=== PATIENT | female | born 1995 | race African-American/Black ===

== ENCOUNTER → 2017-08-05 | Outpatient (REF) | payer OTHER ==
[~2017-08-05] MED LIST: HYDR-385 PO
[2017-08-05 14:07] LABS: PLATELET COUNT, AUTOMATED 268 K/uL (150-450)
== END ==
LOC: ZZSENDIN 12:58
PROVIDERS: ATTEND Student in an Organized Health Care Education/Training Program
DX: Z36.89 Encounter for other specified antenatal screening (principal); Z3A.01 Less than 8 weeks gestation of pregnancy
CPT/HCPCS: 81001; 85025; 86592; 86762; 86850; 86900; 86901; 87088; 87340

== ENCOUNTER 2017-10-30 12:41 | Emergency (ER) | payer OTHER, MEDICAID ==
--- NOTE | 2017-10-30 12:46 | ER Report ---
History and Physical Time Seen By MD: 12:46 HPI/ROS 21-year-old female at 17 weeks gestation presents to the emergency department feeling some cramping pain in her bilateral pelvic region. It started this morning. She's had no trauma. No urinary symptoms, and no fever chills. No vaginal bleeding, and no vaginal discharge. She has not had any complications thus far throughout the . She has been compliant with her vitamins. Remainder of the 14 system rev: Yes Allergies: Coded Allergies: No Known Drug Allergies (Unverified , 10/30/17) Home Meds Reported Medications Vits W-Ca,Fe,Fa(<1MG) ( VITAMINS) 1 Each Tablet, 1 EACH PO DAILY, TAB 10/30/17 Discontinued Scripts Hydrocodone Bit/Acetaminophen (HYDROCODON-ACETAMINOPHEN 5-325) 1 Each Tablet, 1- 2 EACH PO Q6H, #20 TAB Prov:TAD BARROSO 02/15/17 Reviewed Nurses Notes: Yes Old Medical Records Reviewed: Yes Hx Smoking: No Exposure to Second Hand Smoke?: No Hx Substance Use Disorder: Yes (pot) Hx Alcohol Use: No Constitutional Vital Sign - Last 24 Hours 10/30/17 12:46 Temp 97.9 Pulse 75 Resp 14 B/P (MAP) 128/67 Pulse Ox 96 O2 Delivery Room Air Physical Exam General Appearance: The patient is alert, has no immediate need for airway protection and no current signs of toxicity. Eyes: Pupils equal and round no injection. Respiratory: Chest is non tender, lungs are clear to auscultation. Cardiac: regular rate and rhythm Gastrointestinal: Abdomen is gravid and non tender, no masses, bowel sounds normal. Extremities have full range of motion and are non tender. Skin: No rashes or lesions. DIFFERENTIAL DIAGNOSIS: After history and physical exam differential diagnosis was considered for miscarriage, infection, PPROM, round ligament pain, UTI Medical Decision Making Data Points Laboratory Hematology Test 10/30/17 12:46 Urine Color Yellow Urine Clarity Slightly-cloudy Urine pH 7.0 pH (4.8-9.5) Urine Specific [place] 1.020 Urine Protein Negative mg/dL (NEGATIVE) Urine Glucose (UA) Negative mg/dL (NEGATIVE) Urine Ketones Negative mg/dL (NEGATIVE) Urine Blood Negative (NEGATIVE) Urine Nitrite Negative (NEGATIVE) Urine Bilirubin Negative (NEGATIVE) Urine Urobilinogen Negative mg/dL (0.2-1.9) Urine Leukocyte Esterase Negative (NEGATIVE) Urine RBC <1 /HPF (0-2/HPF) Urine WBC 1 /HPF (0-5/HPF) Urine Squamous Epithelial Cells Many /LPF (</=FEW) Urine Bacteria Negative /HPF (NONE-FEW) Urine Mucus Few /HPF (NONE-FEW) Chemistry Test 10/30/17 12:46 Urine Color Yellow Urine Clarity Slightly-cloudy Urine pH 7.0 pH (4.8-9.5) Urine Specific [place] 1.020 Urine Protein Negative mg/dL (NEGATIVE) Urine Glucose (UA) Negative mg/dL (NEGATIVE) Urine Ketones Negative mg/dL (NEGATIVE) Urine Blood Negative (NEGATIVE) Urine Nitrite Negative (NEGATIVE) Urine Bilirubin Negative (NEGATIVE) Urine Urobilinogen Negative mg/dL (0.2-1.9) Urine Leukocyte Esterase Negative (NEGATIVE) Urine RBC <1 /HPF (0-2/HPF) Urine WBC 1 /HPF (0-5/HPF) Urine Squamous Epithelial Cells Many /LPF (</=FEW) Urine Bacteria Negative /HPF (NONE-FEW) Urine Mucus Few /HPF (NONE-FEW) Urinalysis Test 10/30/17 12:46 Urine Color Yellow Urine Clarity Slightly-cloudy Urine pH 7.0 pH (4.8-9.5) Urine Specific [place] 1.020 Urine Protein Negative mg/dL (NEGATIVE) Urine Glucose (UA) Negative mg/dL (NEGATIVE) Urine Ketones Negative mg/dL (NEGATIVE) Urine Blood Negative (NEGATIVE) Urine Nitrite Negative (NEGATIVE) Urine Bilirubin Negative (NEGATIVE) Urine Urobilinogen Negative mg/dL (0.2-1.9) Urine Leukocyte Esterase Negative (NEGATIVE) Urine RBC <1 /HPF (0-2/HPF) Urine WBC 1 /HPF (0-5/HPF) Urine Squamous Epithelial Cells Many /LPF (</=FEW) Urine Bacteria Negative /HPF (NONE-FEW) Urine Mucus Few /HPF (NONE-FEW) ED Course/Re-evaluation ED Course 21-year-old at 17 weeks gestation with bilateral lower pelvic cramping. No vaginal bleeding, discharge, or loss of fluid. Pelvic exam was deferred due to none of the above. UA WNL. A bedside US done by myself shows a very active fetus with a HR in the 150s. I think the diagnosis in this patient is round ligament pain. I discussed this with the patient at length. She will follow-up with her OB doctor sometime this week. Decision to Disposition Date: Oct 30, 2017 Decision to Disposition Time: 13:32 Depart Departure Latest Vital Signs Vital Signs Date Time Temp Pulse Resp B/P (MAP) Pulse Ox O2 Delivery O2 Flow Rate FiO2 10/30/17 12:46 97.9 75 14 128/67 96 Room Air Impression: Primary Impression: Round ligament pain Condition: Improved Disposition: HOME OR SELF-CARE Patient Instructions: Round Ligament Pain (GEN) EDINSON MEDINA MD Oct 30, 2017 12:46
[2017-10-30] MEDS ORDERED: PREN-127 PO (12:52)
[2017-10-30 13:30] VITALS: BP 110/65
== END 2017-10-30 13:39 | disposition home or self-care (01) ==
LOC: ER 12:51
DX: O26.892 Other specified pregnancy related conditions, second trimester (principal); Z3A.17 17 weeks gestation of pregnancy
CPT/HCPCS: 81001; 99284

== ENCOUNTER 2017-11-24 09:42 | Emergency (ER) | payer OTHER, MEDICAID ==
[~2017-11-24 09:42] MED LIST changes: +PREN-127 PO
--- NOTE | 2017-11-24 09:45 | ER Report ---
History and Physical Time Seen By MD: 09:45 HPI/ROS 22-year-old female at 21 weeks gestation presents to the emergency department with a mechanical fall last night. This morning noticed some scant vaginal bleeding and some mild cramping abdominal pain. Still feeling baby move. Other pain or injuries other than the mild cramping in her abdomen. Allergies: Coded Allergies: No Known Drug Allergies (Unverified , 11/24/17) Home Meds Reported Medications Vits W-Ca,Fe,Fa(<1MG) ( VITAMINS) 1 Each Tablet, 1 EACH PO DAILY, TAB 10/30/17 Reviewed Nurses Notes: Yes Old Medical Records Reviewed: Yes Hx Smoking: No Exposure to Second Hand Smoke?: No Hx Substance Use Disorder: Yes (pot) Hx Alcohol Use: No Constitutional Vital Sign - Last 24 Hours 11/24/17 09:47 Temp 98.1 Pulse 90 Resp 12 B/P (MAP) 105/77 Pulse Ox 96 O2 Delivery Room Air Physical Exam General Appearance: The patient is alert, has no immediate need for airway protection and no current signs of toxicity. Eyes: Pupils equal and round no injection. Respiratory: Chest is non tender, lungs are clear to auscultation. Cardiac: regular rate and rhythm Gastrointestinal: Abdomen is soft and non tender, gravid, no masses, bowel sounds normal. Neck: Neck is supple and non tender. Extremities have full range of motion and are non tender. Skin: No rashes or lesions. DIFFERENTIAL DIAGNOSIS: After history and physical exam differential diagnosis was considered for trauma in , abdominal trauma, other trauma, domestic violence Medical Decision Making ED Course/Re-evaluation ED Course Bedside abdominal ultrasound shows good movement with a heart rate of 147. Extremity or bony tenderness to palpation. No current vaginal bleeding. Mild subjective abdominal pain without tenderness to palpation. She is cleared from a trauma standpoint at this point, and will be discharged to labor and delivery where she will have monitoring. Decision to Disposition Date: Nov 24, 2017 Decision to Disposition Time: 10:12 Depart Departure Latest Vital Signs Vital Signs Date Time Temp Pulse Resp B/P (MAP) Pulse Ox O2 Delivery O2 Flow Rate FiO2 11/24/17 09:47 98.1 90 12 105/77 96 Room Air Impression: Primary Impression: Trauma during Condition: Improved Disposition: HOME OR SELF-CARE Patient Instructions: Trauma During (ED) Additional Instructions: Go directly to labor and delivery for additional monitoring EDINSON MEDINA MD Nov 24, 2017 09:45
[2017-11-24 09:47] VITALS: BP 105/77
== END 2017-11-24 10:32 | disposition home or self-care (01) ==
LOC: ER 09:48
DX: O46.92 Antepartum hemorrhage, unspecified, second trimester (principal); R10.9 Unspecified abdominal pain; Z3A.21 21 weeks gestation of pregnancy
CPT/HCPCS: 99284

== ENCOUNTER 2017-11-24 10:48 | Outpatient (CLI) | payer OTHER, MEDICAID ==
[~2017-11-24] VITALS: Ht 154.9 cm; Wt 55.8 kg
[2017-11-24 11:11] VITALS: BP 94/51; Ht 154.9 cm; Wt 55.8 kg
== END 2017-11-24 15:20 | disposition home or self-care (01) ==
LOC: OB 10:48 → UNDOADMOB 10:48 → L&D 10:48 → OB 10:48 → L&D 15:20 → UNDODISOB 15:20 → EDSTATUS 11-29 11:03
PROVIDERS: ATTEND Obstetrics & Gynecology
DX: O26.892 Other specified pregnancy related conditions, second trimester (principal); Z3A.21 21 weeks gestation of pregnancy
CPT/HCPCS: 36415; 86850; 86900; 86901; 99213; G0378; G0379

== ENCOUNTER 2018-01-29 11:17 | Outpatient (CLI) | payer OTHER, MEDICAID ==
[~2018-01-29] VITALS: Ht 157.5 cm; Wt 61.2 kg
[~2018-01-29 11:17] MED LIST changes: +ALBU2.5V36 INH
[2018-01-29 11:40] VITALS: BP 126/74; Ht 157.5 cm; Wt 61.2 kg
== END 2018-01-29 12:04 | disposition home or self-care (01) ==
LOC: L&D 11:17 → UNDOADMOB 11:17 → OB 11:17 → UNDODISOB 12:04 → L&D 12:04 → EDSTATUS 01-31 11:02
PROVIDERS: ATTEND Obstetrics & Gynecology
DX: O36.8130 Decreased fetal movements, third trimester, not applicable or unspecified (principal); Z3A.30 30 weeks gestation of pregnancy
CPT/HCPCS: 59025; 99213; G0378; G0379

== ENCOUNTER 2018-02-18 11:17 | Outpatient (CLI) | payer OTHER, MEDICAID ==
[~2018-02-18] VITALS: Ht 157.5 cm; Wt 63.5 kg
[2018-02-18 11:36] VITALS: BP 125/73; Ht 157.5 cm; Wt 63.5 kg
[2018-02-18] MEDS ORDERED: ACETAMINOPHEN 500 MG TAB PO ONE (12:25)
[2018-02-18] MEDS ORDERED: LOPERAMIDE HCL 2 MG CAP PO ONE (12:25)
--- NOTE | 2018-02-18 12:25 | History & Physical ---
History of Present Illness EDC per LMP: Apr 04, 2018 Estimated Gestational Age: 33.6 Chief Complaint CONTRACTIONS History of Present Illness Presents with report of several days of low back pain and diarrhea, worse over the last couple days. uncomplicated. Past Medical, Surgical, Family and Obstetric Histories reviewed. Please see OG chart. History Patient's Blood Type: O Positive Rubella Status: Immune Allergies: Coded Allergies: No Known Drug Allergies (Unverified , 01/29/18) Med Rec Home Meds Active Scripts Albuterol Sulfate 0.083% (ALBUTEROL SULFATE 0.083%) 2.5 Mg/3 Ml Vial.neb, 2.5 MG INH Q4H PRN for WHEEZING, #1 BOX 0 Refills Prov:EDINSON MEDINA MD 01/29/18 Reported Medications Vits W-Ca,Fe,Fa(<1MG) ( VITAMINS) 1 Each Tablet, 1 EACH PO DAILY, TAB 10/30/17 Review of Systems All Systems Reviewed/Normal: Yes, Except as Noted Exam General Exam General Apperance: Alert/Awake/No Acute Distress Neuro: No Gross deficits Eyes: Normal Extraocular Movement & Vison ENT: Normal Cardiovascular: Regular Rate and Rhythm Respiratory: No Respiratory Distress, Clear to Auscultation Extremities: No Cyanosis,Clubbing or Edema Integumentary: Skin Intact without Lesions or Rash Psychological: Alert & Oriented X3, Appropriate Mood & Affect Cervical Dialation: 0.5 Cervical Consistency: Moderate Presentation: Vertex Uterine Contraction Strength: Mild (irregular) Fetus Heart Tone Variabilty: Moderate FHT Accelerations: 15X15 FHT Category: I Medical Decision Making VTE Prophylasis: Adult Deep Vein Thrombosis/Pulmonary: No Pharmacological Contraindicati: Pt at Low Risk for VTE Mechanical Contraindications: Pt at Low Risk for VTE Assessment and Plan Problems: (1) Low back ache (2) Diarrhea Assessment & Plan: symptoms related to GI symptoms. Recommend anti-diarrheal and Tylenol. Home to rest later. Problem Qualifiers (1) Low back ache: Chronicity: acute Back pain laterality: bilateral Sciatica presence: without sciatica Qualified Codes: M54.5 - Low back pain (2) Diarrhea: Diarrhea type: unspecified type Qualified Codes: R19.7 - Diarrhea, unspecified SAMM LYONS MD Feb 18, 2018 12:25
[2018-02-18] MEDS ORDERED: LR(*) 1000 ML BAG 1,000 ML IV PRN (12:26)
[2018-02-18] MEDS ORDERED: LOPERAMIDE HCL 1 MG/5 ML UDC PO ONE (13:10)
== END 2018-02-18 13:23 | disposition home or self-care (01) ==
LOC: UNDOADMOB 11:17 → OB 11:17 → L&D 11:17 → UNDODISOB 13:23 → L&D 13:23 → EDSTATUS 02-21 10:17
PROVIDERS: ATTEND Obstetrics & Gynecology
DX: O26.893 Other specified pregnancy related conditions, third trimester (principal); M54.5 Low back pain; R19.7 Diarrhea, unspecified; Z3A.33 33 weeks gestation of pregnancy
CPT/HCPCS: 81001; 99213; J7120; G0378; G0379

== ENCOUNTER 2018-03-02 14:58 | Outpatient (CLI) | payer OTHER, MEDICAID ==
[~2018-03-02] VITALS: Ht 154.9 cm; Wt 65.8 kg
[2018-03-02] MEDS ORDERED: PENICILLIN G 5 MILLUN/100 ML 100 ML IVPB ONE (16:20)
[2018-03-02] MEDS ORDERED: LR(*) 1000 ML BAG 1,000 ML IV SCH (16:21)
[2018-03-02 16:50] LABS: PLATELET COUNT, AUTOMATED 176 K/uL (150-450)
[2018-03-02 17:00] VITALS: BP 116/70; Ht 154.9 cm; Wt 65.8 kg
[2018-03-02] MEDS ORDERED: BETAMETHASONE/ACETATE 6 MG/1ML IM ONLY ONE (17:15)
--- NOTE | 2018-03-02 17:17 | History & Physical ---
History of Present Illness EDC per LMP: Apr 04, 2018 Estimated Gestational Age: 35.2 Chief Complaint Loss of fluid History of Present Illness 22-year-old at 35w2d presents with PPROM. She reports a gush of fluid at 1420hrs today. It is clear fluid. No vaginal bleeding. No fevers or chills. She reports movement. She denies having any pain, contractions or cramping. No preeclampsia symptoms. PNR reviewed. PNC by [facility]. History Patient's Blood Type: O Positive Rubella Status: Immune Group B Strep Screen: Negative Obstetrical History: Primip Past Medical History: PMH: None PSH: None Allergies: Coded Allergies: No Known Drug Allergies (Unverified , 01/29/18) Social History: No T/E/D. FOB involved. Med Rec Home Meds Active Scripts Albuterol Sulfate 0.083% (ALBUTEROL SULFATE 0.083%) 2.5 Mg/3 Ml Vial.neb, 2.5 MG INH Q4H PRN for WHEEZING, #1 BOX 0 Refills Prov:EDINSON MEDINA MD 01/29/18 Reported Medications Vits W-Ca,Fe,Fa(<1MG) ( VITAMINS) 1 Each Tablet, 1 EACH PO DAILY, TAB 10/30/17 Review of Systems Constitutional: No Fever Neurological: No Syncope Eyes: No Vision Change Cardiovascular: No Chest Pain Respiratory: No Shortness of Breath Gastrointestinal: No Nausea, No Vomiting Genitourinary: No Dysuria Musculoskeletal: No Pain Psychiatric: No Depression, No Anxiety Exam General Exam Vital Signs Vital Signs Date Time Temp Pulse Resp B/P (MAP) Pulse Ox O2 Delivery O2 Flow Rate FiO2 03/02/18 17:00 98.0 100 18 116/70 (85) 95 Room Air General Apperance: Alert/Awake/No Acute Distress Neuro: No Gross deficits Eyes: Normal Extraocular Movement & Vison Cardiovascular: Regular Rate and Rhythm Respiratory: No Respiratory Distress, Clear to Auscultation Abdomen: Gravid - Non-Tender : Normal Musculoskeletal: No Weakness/Pain Extremities: No Cyanosis,Clubbing or Edema Integumentary: Skin Intact without Lesions or Rash Psychological: Alert & Oriented X3, Appropriate Mood & Affect Vaginal Discharge/Fluid?: Clear Fluid Cervical Dialation: 1 Cervical Effacement (%): 90 Cervical Consistency: Soft Cervical Position: Posterior Station: -2 Presentation: Vertex Uterine Contractions(Q min): 20 Uterine Contraction Strength: Mild UC Resting Tone: Soft Fetus Feeling Movement?: Yes FHT Category: I Medical Decision Making Data Points Result Diagram: 03/02/18 1632 Imaging Ultrasound/Imaging Bedside ultrasound shows cephalic presentation Pre-Admit Course Medical Record Review: Yes VTE Prophylasis: Adult Deep Vein Thrombosis/Pulmonary: No Pharmacological Contraindicati: Pt at Low Risk for VTE Mechanical Contraindications: Pt at Low Risk for VTE Assessment and Plan Problems: (1) premature rupture of membranes (PPROM) with unknown onset of labor Assessment & Plan: 22-year-old at 35w2d presents with PPROM. GBS unknown. First dose of penicillin at 1630. Will give betamethasone prior to discharge. I discussed with the pediatricians and nurses on the floor regarding keeping her here versus transfer due to status. The general consensus is she would be best served with a transfer to [facility] where there is a NICU. I called the Doc Line and Dr. Sivan Wilder has agreed to accept her transfer by private vehicle to [facility]. I believe she is safe to transfer by private vehicle as long as she goes straight there. (2) 35 weeks gestation of JAIME LAL MD Mar 02, 2018 17:17
--- NOTE | 2018-03-02 17:28 | Short(Outpt) Discharge Summary ---
Discharge Summary Reason for Hosp/Final Diag: (1) premature rupture of membranes (PPROM) with unknown onset of labor Hospital Course & Plan: 22-year-old at 35w2d presents with PPROM. GBS unknown. First dose of penicillin at 1630. Will give betamethasone prior to discharge. I discussed with the pediatricians and nurses on the floor regarding keeping her here versus transfer due to status. The general consensus is she would be best served with a transfer to [facility] where there is a NICU. I called the Doc Line and Dr. Sivan Wilder has agreed to accept her transfer by private vehicle to [facility]. I believe she is safe to transfer by private vehicle as long as she goes straight there. (2) 35 weeks gestation of Departure Discharge to: Other Facility ([facility]) Discharge Instructions Home Meds Active Scripts Albuterol Sulfate 0.083% (ALBUTEROL SULFATE 0.083%) 2.5 Mg/3 Ml Vial.neb, 2.5 MG INH Q4H PRN for WHEEZING, #1 BOX 0 Refills Prov:EDINSON MEDINA MD 01/29/18 Reported Medications Vits W-Ca,Fe,Fa(<1MG) ( VITAMINS) 1 Each Tablet, 1 EACH PO DAILY, TAB 10/30/17 Activity: As Tolerated JAIME LAL MD Mar 02, 2018 17:28
== END 2018-03-02 17:55 | disposition home or self-care (01) ==
LOC: L&D 14:58 → OB 14:58 → UNDOADMIN 14:58 → UNDODISIN 17:55 → L&D 17:55 → EDSTATUS 03-03 16:44
PROVIDERS: ATTEND Obstetrics & Gynecology
DX: O42.913 Preterm premature rupture of membranes, unspecified as to length of time between rupture and onset of labor, third trimester (principal); Z3A.35 35 weeks gestation of pregnancy
CPT/HCPCS: 59025; 84112; 85025; 86703; 86850; 86900; 86901; 99213; J0702; J2540; J7120

== ENCOUNTER 2018-07-20 04:40 | Emergency (ER) | payer MEDICAID, OTHER ==
[2018-03-02 17:00] VITALS: Wt 52.2 kg
--- NOTE | 2018-07-20 05:02 | ER Report ---
History and Physical Time Seen By MD: 05:01 Hx. of Stated Complaint: PATIENT REPORTS NAUSEA AND VOMITING STARTED AT 0230 (MARCIAL MOFFETT MD) HPI/ROS CHIEF COMPLAINT: Nausea and vomiting HISTORY OF PRESENT ILLNESS: This is a 22-year-old female. She had sudden onset of nausea and vomiting this morning about 2:30 in the morning. Unable to keep anything down. Has abdominal discomfort but no significant abdominal pain. No diarrhea. She has had some cold symptoms recently with runny nose sore throat or cough. No fevers or chills. She denies shortness of breath or chest pain. 4 months , normal periods, has Mirena IUD. (MARCIAL MOFFETT MD) Allergies: Coded Allergies: No Known Drug Allergies (Unverified , 07/20/18) Home Meds Active Scripts Promethazine Hcl (PROMETHAZINE HCL) 25 Mg Tablet, 25 MG PO Q6H for Nausea, #30 TAB 0 Refills Prov:ELIAS HCAUHAN MD 07/20/18 Discontinued Reported Medications Vits W-Ca,Fe,Fa(<1MG) ( VITAMINS) 1 Each Tablet, 1 EACH PO DAILY, TAB 10/30/17 Discontinued Scripts Albuterol Sulfate 0.083% (ALBUTEROL SULFATE 0.083%) 2.5 Mg/3 Ml Vial.neb, 2.5 MG INH Q4H PRN for WHEEZING, #1 BOX 0 Refills Prov:EDINSON MEDINA MD 01/29/18 Reviewed Nurses Notes: Yes (MARCIAL MOFFETT MD) Hx Smoking: No Smoking Status: Never Smoker Exposure to Second Hand Smoke?: Yes Hx Substance Use Disorder: Yes (pot) Hx Alcohol Use: No (MARCIAL MOFFETT MD) Constitutional Vital Sign - Last 24 Hours 07/20/18 07/20/18 07/20/18 07/20/18 04:52 04:53 05:00 05:30 Temp 97.8 Pulse 104 Resp 24 B/P (MAP) 90/77 (81) 90/77 102/55 (71) 93/60 (71) Pulse Ox 98 O2 Delivery Room Air 07/20/18 07/20/18 07/20/18 07/20/18 05:40 06:00 06:10 06:30 Pulse 59 79 88 B/P (MAP) 87/70 (76) 113/78 (90) Pulse Ox 96 99 100 07/20/18 07:35 Pulse ??? Intake and Output 07/19/18 07/19/18 07/20/18 15:00 23:00 07:00 Intake Total 1000 ml Balance 1000 ml (ELIAS CHAUHAN MD) Physical Exam General Appearance: Alert, having distress when vomiting, otherwise no dist ress. No signs of toxicity. Eyes: Pupils equal and round no injection. ENT: Normal oral mucosa. Mucous membranes are dry, otherwise normal oral mucosa. Little bit of posterior oropharynx erythema. Neck: Neck is supple and non tender. Respiratory: Chest is non tender, lungs are clear to auscultation. Cardiac: regular rate and rhythm Gastrointestinal: Abdomen is soft, diffuse discomfort, but no focal tenderness, bowel sounds hyperactive. Musculoskeletal: Extremities have full range of motion. Non tender. Skin: No rashes or lesions. DIFFERENTIAL DIAGNOSIS: After history and physical exam differential diagnosis was considered for nausea and vomiting (MARCIAL MOFFETT MD) Medical Decision Making Data Points Result Diagram: 07/20/18 0507 07/20/18 0507 Laboratory Hematology Test 07/20/18 00:00 07/20/18 05:07 07/20/18 07:17 Human Chorionic Gonadotropin, Qual Negative (NEGATIVE) Red Blood Count 4.67 M/uL (4.17-5.56) Mean Corpuscular Volume 91.5 fL (80.0-96.0) Mean Corpuscular Hemoglobin 31.1 pg (26.0-33.0) Mean Corpuscular Hemoglobin Concent 34.0 g/dL (32.0-36.0) Red Cell Distribution Width 14.9 % (11.5-14.5) Mean Platelet Volume 8.2 fL (7.2-11.1) Neutrophils (%) (Auto) 77.2 % (39.4-72.5) Lymphocytes (%) (Auto) 16.9 % (17.6-49.6) Monocytes (%) (Auto) 4.6 % (4.1-12.4) Eosinophils (%) (Auto) 1.1 % (0.4-6.7) Basophils (%) (Auto) 0.2 % (0.3-1.4) Nucleated RBC Relative Count (auto) 0.0 /100WBC Neutrophils # (Auto) 8.9 K/uL (2.0-7.4) Lymphocytes # (Auto) 2.0 K/uL (1.3-3.6) Monocytes # (Auto) 0.5 K/uL (0.3-1.0) Eosinophils # (Auto) 0.1 K/uL (0.0-0.5) Basophils # (Auto) 0.0 K/uL (0.0-0.1) Nucleated RBC Absolute Count (auto) 0.00 K/uL Sodium Level 139 mmol/L (137-145) Potassium Level 3.6 mmol/L (3.5-5.0) Chloride Level 106 mmol/L (98-107) Carbon Dioxide Level 18 mmol/L (22-31) Blood Urea Nitrogen 19 mg/dl (7-18) Creatinine 0.80 mg/dl (0.52-1.04) Glomerular Filtration Rate Calc > 60.0 Random Glucose 138 mg/dl (75-110) Calcium Level 9.8 mg/dl (8.4-10.2) Total Bilirubin 0.5 mg/dl (0.2-1.3) Aspartate Amino Transf (AST/SGOT) 24 U/L (0-35) Alanine Aminotransferase (ALT/SGPT) 20 U/L (0-56) Alkaline Phosphatase 101 U/L (0-126) Total Protein 8.1 g/dl (6.3-8.2) Albumin 4.9 g/dl (3.5-5.0) Influenza Virus Type A (PCR) Negative (NEGATIVE) Influenza Virus Type B (PCR) Negative (NEGATIVE) Urine Color Yellow Urine Clarity Slightly-cloudy Urine pH 7.0 pH (4.8-9.5) Urine Specific [place] 1.015 Urine Protein Negative mg/dL (NEGATIVE) Urine Glucose (UA) Negative mg/dL (NEGATIVE) Urine Ketones 20 mg/dL (NEGATIVE) Urine Blood Negative (NEGATIVE) Urine Nitrite Negative (NEGATIVE) Urine Bilirubin Negative (NEGATIVE) Urine Urobilinogen Negative mg/dL (0.2-1.9) Urine Leukocyte Esterase Negative (NEGATIVE) Urine RBC <1 /HPF (0-2/HPF) Urine WBC 2 /HPF (0-5/HPF) Urine Squamous Epithelial Cells Many /LPF (</=FEW) Urine Bacteria Negative /HPF (NONE-FEW) Urine Mucus Few /HPF (NONE-FEW) Chemistry Test 07/20/18 00:00 07/20/18 05:07 07/20/18 07:17 Human Chorionic Gonadotropin, Qual Negative (NEGATIVE) White Blood Count 11.6 k/uL (4.5-11.0) Red Blood Count 4.67 M/uL (4.17-5.56) Hemoglobin 14.6 g/dL (12.0-16.0) Hematocrit 42.7 % (34.0-47.0) Mean Corpuscular Volume 91.5 fL (80.0-96.0) Mean Corpuscular Hemoglobin 31.1 pg (26.0-33.0) Mean Corpuscular Hemoglobin Concent 34.0 g/dL (32.0-36.0) Red Cell Distribution Width 14.9 % (11.5-14.5) Platelet Count 314 K/uL (150-450) Mean Platelet Volume 8.2 fL (7.2-11.1) Neutrophils (%) (Auto) 77.2 % (39.4-72.5) Lymphocytes (%) (Auto) 16.9 % (17.6-49.6) Monocytes (%) (Auto) 4.6 % (4.1-12.4) Eosinophils (%) (Auto) 1.1 % (0.4-6.7) Basophils (%) (Auto) 0.2 % (0.3-1.4) Nucleated RBC Relative Count (auto) 0.0 /100WBC Neutrophils # (Auto) 8.9 K/uL (2.0-7.4) Lymphocytes # (Auto) 2.0 K/uL (1.3-3.6) Monocytes # (Auto) 0.5 K/uL (0.3-1.0) Eosinophils # (Auto) 0.1 K/uL (0.0-0.5) Basophils # (Auto) 0.0 K/uL (0.0-0.1) Nucleated RBC Absolute Count (auto) 0.00 K/uL Glomerular Filtration Rate Calc > 60.0 Calcium Level 9.8 mg/dl (8.4-10.2) Total Bilirubin 0.5 mg/dl (0.2-1.3) Aspartate Amino Transf (AST/SGOT) 24 U/L (0-35) Alanine Aminotransferase (ALT/SGPT) 20 U/L (0-56) Alkaline Phosphatase 101 U/L (0-126) Total Protein 8.1 g/dl (6.3-8.2) Albumin 4.9 g/dl (3.5-5.0) Influenza Virus Type A (PCR) Negative (NEGATIVE) Influenza Virus Type B (PCR) Negative (NEGATIVE) Urine Color Yellow Urine Clarity Slightly-cloudy Urine pH 7.0 pH (4.8-9.5) Urine Specific [place] 1.015 Urine Protein Negative mg/dL (NEGATIVE) Urine Glucose (UA) Negative mg/dL (NEGATIVE) Urine Ketones 20 mg/dL (NEGATIVE) Urine Blood Negative (NEGATIVE) Urine Nitrite Negative (NEGATIVE) Urine Bilirubin Negative (NEGATIVE) Urine Urobilinogen Negative mg/dL (0.2-1.9) Urine Leukocyte Esterase Negative (NEGATIVE) Urine RBC <1 /HPF (0-2/HPF) Urine WBC 2 /HPF (0-5/HPF) Urine Squamous Epithelial Cells Many /LPF (</=FEW) Urine Bacteria Negative /HPF (NONE-FEW) Urine Mucus Few /HPF (NONE-FEW) Urinalysis Test 07/20/18 07:17 Urine Color Yellow Urine Clarity Slightly-cloudy Urine pH 7.0 pH (4.8-9.5) Urine Specific [place] 1.015 Urine Protein Negative mg/dL (NEGATIVE) Urine Glucose (UA) Negative mg/dL (NEGATIVE) Urine Ketones 20 mg/dL (NEGATIVE) Urine Blood Negative (NEGATIVE) Urine Nitrite Negative (NEGATIVE) Urine Bilirubin Negative (NEGATIVE) Urine Urobilinogen Negative mg/dL (0.2-1.9) Urine Leukocyte Esterase Negative (NEGATIVE) Urine RBC <1 /HPF (0-2/HPF) Urine WBC 2 /HPF (0-5/HPF) Urine Squamous Epithelial Cells Many /LPF (</=FEW) Urine Bacteria Negative /HPF (NONE-FEW) Urine Mucus Few /HPF (NONE-FEW) (ELIAS CHAUHAN MD) ED Course/Re-evaluation Clinical Indication for ER IV: Hydration, IV Access ED Course Initially given Zofran and a liter of normal saline. Labs obtained. Still vomiting so gave Phenergan with Benadryl. Influenza negative. Labs show some dehydration otherwise unremarkable. (MARCIAL MOFFETT MD) ED Course 07/20/2018 8:27:45 am patient is still nauseous but no further vomiting discussed options of continued observation in the ER versus discharge home with prescription for nausea medicine understanding of symptoms worsen they can return. Patient was to be discharged home. Lab work at this point is reassuring test is negative. We'll discharge home with instructions to return if symptoms worsen or persist. Decision to Disposition Date: Jul 20, 2018 Decision to Disposition Time: 08:28 (ELIAS CHAUHAN MD) Depart Departure Latest Vital Signs Vital Signs Date Time Temp Pulse Resp B/P (MAP) Pulse Ox O2 Delivery O2 Flow Rate FiO2 07/20/18 07:35 ??? 07/20/18 06:30 113/78 (90) 100 07/20/18 04:53 97.8 24 Room Air (ELIAS CHAUHAN MD) Impression: Primary Impression: Vomiting Condition: Improved Disposition: HOME OR SELF-CARE New Scripts Promethazine Hcl (PROMETHAZINE HCL) 25 Mg Tablet 25 MG PO Q6H for Nausea, #30 TAB 0 Refills Prov: ELIAS CHAUHAN MD 07/20/18 Departure Forms: ER Transition Record, Medications Reconciliation, Off Work/School Form, School or Work Release?: Work Number of days to be released: 2 Patient Portal Information Patient Instructions: Acute Nausea and Vomiting (ED) Additional Instructions: Return to the emergency department if symptoms worsen at any time, are not controlled by your medications. Or if you develop new symptoms such as fever or abdominal pain. Problem Qualifiers Primary Impression: Vomiting Vomiting type: unspecified Vomiting Intractability: intractable Nausea presence: with nausea Qualified Codes: R11.2 - Nausea with vomiting, unspecified MARCIAL MOFFETT MD Jul 20, 2018 05:02 ELIAS CHAUHAN MD Jul 20, 2018 08:31
[2018-07-20] MEDS ORDERED: NS(*) 0.9% 1000 ML BAG 1,000 ML IV ONE ×2 (05:10→06:05)
[2018-07-20] MEDS ORDERED: ONDANSETRON 4 MG/2 ML VIAL IVP ONE (05:10)
[2018-07-20 05:22] LABS: PLATELET COUNT, AUTOMATED 314 K/uL (150-450)
[2018-07-20] MEDS ORDERED: diphenhydrAMINE 50 MG/ML VIAL IVP ONE (06:05)
[2018-07-20] MEDS ORDERED: PROMETHAZINE 25 MG/ML 1 ML AMP IVP ONE (06:05)
[2018-07-20 08:00] VITALS: BP 114/77
[2018-07-20] MEDS ORDERED: PROM-110 PO (08:30)
== END 2018-07-20 08:40 | disposition home or self-care (01) ==
LOC: ER 05:02
DX: R11.2 Nausea with vomiting, unspecified (principal); R10.84 Generalized abdominal pain
CPT/HCPCS: 81001; 84703; 85025; 87088; 87502; 96361; 96374; 96375; 99284; J1200; J2405; J2550; J7030; 82040; 82247; 82310; 82374; 82435; 82565; 82947; 84075; 84132; 84155; 84295; 84450; 84460; 84520